=== PATIENT | female | born 1955 | race Caucasian/White ===

== ENCOUNTER 2020-02-18 08:45 | Outpatient (CLI) | payer MEDICARE ==
[2020-02-18 15:06] LABS: BASOPHILS % (AUTO) 0.4 %; EOSINOPHILS # (AUTO) 0.1 10^3/uL (0.0-0.7); EOSINOPHILS % (AUTO) 2.4 %; HGB - HEMOGLOBIN 13.2 g/dL (12.0-16.0); LYMPHOCYTES # (AUTO) 1.9 10^3/uL (1.5-3.5); LYMPHOCYTES % (AUTO) 33.9 %; MEAN CORPUSCULAR HEMOGLOBIN 31.7 pg (27.0-31.0); MEAN CORPUSCULAR HGB CONC 33.2 g/dL (32.0-36.0); MEAN CORPUSCULAR VOLUME 95.2 fL (81.0-99.0); MEAN PLATELET VOLUME 11.7 fL (7.9-10.8); MONOCYTES # (AUTO) 0.4 10^3/uL (0.0-1.0); MONOCYTES % (AUTO) 6.8 %; NEUTROPHILS # (AUTO) 3.1 10^3/uL (1.5-6.6); NEUTROPHILS % (AUTO) 56.1 %; PLT - PLATELET COUNT 210 10^3/uL (130-450); RED BLOOD COUNT 4.17 10^6/uL (4.20-5.40); RED CELL DISTRIBUTION WIDTH 13.2 % (12.0-15.0); WHITE BLOOD COUNT 5.5 x10^3/uL (4.8-10.8)
[2020-02-18 15:27] LABS: ALBUMIN 4.4 g/dL (3.2-5.5); ALBUMIN/GLOBULIN RATIO 1.5 (1.0-2.2); ALKALINE PHOSPHATASE 65 IU/L (42-121); ALT ALANINE AMINOTRANSFERASE 35 IU/L (10-60); AST ASPARTATE AMINOTRANSFERASE 34 IU/L (10-42); BILIRUBIN,TOTAL 0.8 mg/dL (0.2-1.0); BUN - BLOOD UREA NITROGEN 19 mg/dL (6-20); CALCIUM 9.4 mg/dL (8.5-10.3); CARBON DIOXIDE - CO2 29 mmol/L (21-32); CHLORIDE 104 mmol/L (101-111); CHOL/HDL RATIO 3.3 (<4.4); CHOLESTEROL 210 mg/dL; CREATININE 0.8 mg/dL (0.4-1.0); GLUCOSE 145 mg/dL (70-100); HDL CHOLESTEROL 64 mg/dL; LDL CHOLESTEROL,CALCULATED 108 mg/dL; LDL/HDL RATIO 1.7 (<4.4); SODIUM 138 mmol/L (135-145); TOTAL PROTEIN 7.3 g/dL (6.7-8.2); VLDL CHOLESTEROL 38 mg/dL
== END 2020-02-18 08:46 | disposition home or self-care (01) ==
LOC: LAB.S 08:45
PROVIDERS: ATTEND Registered Nurse
DX: E78.5 Hyperlipidemia, unspecified (principal); Z13.228 Encounter for screening for other metabolic disorders; Z13.29 Encounter for screening for other suspected endocrine disorder; Z13.0 Encounter for screening for diseases of the blood and blood-forming organs and certain disorders involving the immune mechanism
CPT/HCPCS: 36415; 80053; 80061; 83721; 84443; 85025

== ENCOUNTER 2020-05-27 07:58 | Outpatient (CLI) | payer MEDICARE ==
[2020-05-27 15:36] LABS: CREATININE,URINE 71.5 mg/dL; MICROALBUM/CREATININE RATIO,UR 5.6 ug/mg (<30.0); MICROALBUMIN,URINE 0.4 mg/dL (0-300.0)
[2020-05-27 20:21] LABS: HEMOGLOBIN A1c% 6.1 % (4.27-6.07)
== END 2020-05-27 07:59 | disposition home or self-care (01) ==
LOC: LAB.S 07:58
PROVIDERS: ATTEND Registered Nurse
DX: E11.9 Type 2 diabetes mellitus without complications (principal)
CPT/HCPCS: 36415; 82043; 82570; 83036

== ENCOUNTER 2020-05-31 20:23 | Day surgery (SDC) | payer MEDICARE ==
--- NOTE | 2020-05-31 20:42 | ED Physician Documentation ---
PD HPI ABD PAIN - Stated complaint Stated Complaint: ABD PX - Chief complaint Chief Complaint: Abd Pain - History obtained from History obtained from: Patient - Additional information Additional information: 64-year-old woman with history of GERD, hiatal hernia, colonic polyps. Last colonoscopy was approximately 3 years ago. She ate beans soup last night for dinner and a few hours later developed central and lower abdominal pain that does not seem to lateralize. She has had loose stools for quite some time, and she had a normal bowel movement for her this morning that did not change her pain. She denies nausea or fevers. No history of abdominal surgeries. She does use marijuana daily but denies nausea Review of Systems Ten Systems: 10 systems reviewed and negative Constitutional: denies: Fever, Chills Cardiac: denies: Chest pain / pressure, Palpitations Respiratory: denies: Dyspnea, Cough GI: reports: Diarrhea (loose, chronic). denies: Nausea, Vomiting PD PAST MEDICAL HISTORY - Present Medications Home Medications: Ambulatory Orders Medication Instructions Recorded Confirmed Atorvastatin [Lipitor] mg PO DAILY 05/31/20 Pantoprazole [Protonix] mg PO DAILY 05/31/20 metFORMIN [Glucophage] mg PO BID 05/31/20 - Allergies Allergies/Adverse Reactions: Allergies Allergy/AdvReac Type Severity Reaction Status Date / Time droperidol Allergy Unknown Verified 05/31/20 20:49 tetracycline Allergy Rash Verified 05/31/20 20:49 PD ED PE NORMAL - Vitals Vital signs reviewed: Yes - General General: Alert and oriented X 3, No acute distress - HEENT HEENT: PERRL, EOMI - Neck Neck: Supple, no meningeal sign, No bony TTP - Cardiac Cardiac: RRR, No murmur - Respiratory Respiratory: No respiratory distress - Abdomen Abdomen: Normal bowel sounds, Soft, Other (Modest lower abdominal tenderness without surgical signs. Does not seem to lateralize.) - Back Back: No CVA TTP, No spinal TTP - Derm Derm: Normal color, Warm and dry - Extremities Extremities: No edema, No calf tenderness / cord - Neuro Neuro: Alert and oriented X 3, Normal speech Results - Vitals Vitals: Vital Signs - 24 hr 05/31/20 20:33 Temperature 36.8 C Heart Rate 85 Respiratory 18 Rate Blood Pressure 161/85 H O2 Saturation 98 Oxygen O2 Source Room air - Labs Labs: Laboratory Tests 05/31/20 05/31/20 05/31/20 08:45 08:45 08:45 WBC 10.7 RBC 4.31 Hgb 13.4 Hct 39.2 MCV 91.0 MCH 31.1 H MCHC 34.2 RDW 12.4 Plt Count 235 MPV 10.4 Neut # (Auto) 6.6 Lymph # (Auto) 3.2 [place] # (Auto) 0.7 Eos # (Auto) 0.2 Baso # (Auto) 0.0 Absolute Nucleated RBC 0.00 Nucleated RBC % 0.0 Sodium 138 Potassium 3.8 Chloride 103 Carbon Dioxide 24 Anion Gap 11.0 BUN 20 Creatinine 0.8 Estimated GFR (MDRD) 72 L Glucose 129 H Calcium 9.7 Total Bilirubin 0.7 AST 22 ALT 26 Alkaline Phosphatase 59 Total Protein 7.5 Albumin 4.7 Globulin 2.8 Albumin/Globulin Ratio 1.7 Lipase 38 Urine Color YELLOW Urine Clarity CLEAR Urine pH 5.5 Ur Specific [place] 1.025 Urine Protein NEGATIVE Urine Glucose (UA) NEGATIVE Urine Ketones NEGATIVE Urine Occult Blood NEGATIVE Urine Nitrite NEGATIVE Urine Bilirubin NEGATIVE Urine Urobilinogen 0.2 (NORMAL) Ur Leukocyte Esterase NEGATIVE Ur Microscopic Review NOT INDICATED Urine Culture Comments NOT INDICATED - Rads (name of study) CT A/P Radiology: EMP read contemporaneously PD MEDICAL DECISION MAKING - ED course ED course: 64-year-old woman presents with acute lower abdominal pain, and CT imaging found to have acute appendicitis. Incidental findings were discussed with the patient. Case discussed by phone with Dr. Flora Stoll at 10:10 PM. Transition orders written so she can board on the floor with IV antibiotics pending surgery in the morning. Departure - Departure Disposition: ED Transfer to [facility] Clinical Impression: Pulmonary nodule Appendicitis Qualifiers: Appendicitis type: acute appendicitis Acute appendicitis type: with localized peritonitis Appendicitis gangrene presence: without gangrene Appendicitis perforation presence: without perforation Appendicitis abscess presence: without abscess Qualified Code(s): K35.30 - Acute appendicitis with localized peritonitis, without perforation or gangrene Condition: Stable
[2020-05-31 20:54] LABS: BASOPHILS % (AUTO) 0.2 %; EOSINOPHILS # (AUTO) 0.2 10^3/uL (0.0-0.7); EOSINOPHILS % (AUTO) 1.5 %; HGB - HEMOGLOBIN 13.4 g/dL (12.0-16.0); LYMPHOCYTES # (AUTO) 3.2 10^3/uL (1.5-3.5); LYMPHOCYTES % (AUTO) 29.8 %; MEAN CORPUSCULAR HEMOGLOBIN 31.1 pg (27.0-31.0); MEAN CORPUSCULAR HGB CONC 34.2 g/dL (32.0-36.0); MEAN PLATELET VOLUME 10.4 fL (7.9-10.8); MONOCYTES # (AUTO) 0.7 10^3/uL (0.0-1.0); MONOCYTES % (AUTO) 6.8 %; NEUTROPHILS # (AUTO) 6.6 10^3/uL (1.5-6.6); NEUTROPHILS % (AUTO) 61.5 %; PLT - PLATELET COUNT 235 10^3/uL (130-450); RED BLOOD COUNT 4.31 10^6/uL (4.20-5.40); RED CELL DISTRIBUTION WIDTH 12.4 % (12.0-15.0); WHITE BLOOD COUNT 10.7 x10^3/uL (4.8-10.8)
[2020-05-31 20:55] LABS: BILIRUBIN,URINE NEGATIVE (NEGATIVE); GLUCOSE, URINE (UA) NEGATIVE (NEGATIVE); KETONES,URINE (UA) NEGATIVE (NEGATIVE); LEUKOCYTE ESTERASE, URINE NEGATIVE (NEGATIVE); NITRITE,URINE NEGATIVE (NEGATIVE); OCCULT BLOOD,URINE NEGATIVE (NEGATIVE); PH,URINE 5.5 PH (5.0-7.5); PROTEIN,URINE NEGATIVE (NEGATIVE); UROBILINOGEN,URINE 0.2 (NORMAL) E.U./dL (NORMAL)
[2020-05-31 20:56] LABS: CLARITY,URINE CLEAR (CLEAR)
[2020-05-31] MEDS ORDERED: IOVERSOL 320 100 ML VIAL IVP ONE ×2 (21:07→21:25)
[2020-05-31 21:10] LABS: ALBUMIN 4.7 g/dL (3.2-5.5); ALBUMIN/GLOBULIN RATIO 1.7 (1.0-2.2); BILIRUBIN,TOTAL 0.7 mg/dL (0.2-1.0); CALCIUM 9.7 mg/dL (8.5-10.3); CREATININE 0.8 mg/dL (0.4-1.0); TOTAL PROTEIN 7.5 g/dL (6.7-8.2)
[2020-05-31] MEDS ORDERED: D5.45NS W/20 MEQ KCL 1,000 ML IV STA (21:39)
[2020-05-31] MEDS ORDERED: PIPERACILLIN/TAZOBACTAM 3.375 GM in SODIUM CHLORIDE 0.9% MINIBAG 100 ML IV STA (21:51)
--- NOTE | 2020-05-31 22:06 | CT Report ---
PROCEDURE: Abdomen/Pelvis W INDICATIONS: IV only, low abd pain CONTRAST: IV CONTRAST: Optiray 320 ml: 100 PO CONTRAST: *NO PO CONTRAST TECHNIQUE: After the administration of IV contrast, 5 mm thick sections acquired from the diaphragms to the symp hysis. 5 mm thick coronal and sagittal reformats were acquired. For radiation dose reduction, the f ollowing was used: automated exposure control, adjustment of mA and/or kV according to patient size. COMPARISON: None. FINDINGS: Image quality: Excellent. ABDOMEN: Lung bases: 5 mm left posterior lateral lower lobe subpleural groundglass nodule. Lung bases are oth erwise clear. Heart size is normal. Small fat-containing hiatal hernia. Solid organs: Mild hepatomegaly and minor hepatic steatosis. The spleen is normal size. Gallbladder has a normal CT appearance. Biliary system is non dilated. Pancreas enhances normally. No adrenal nodules. Kidneys demonstrate normal size and enhancement, without hydronephrosis. Peritoneum and bowel: The appendix is mildly enlarged. The wall is indistinct and there is mild nitin appendiceal inflammation. Pelvic small bowel loops are fluid-filled and mildly prominent in diameter. Normal-appearing colon and rectum. Bowel loops demonstrate normal wall thickness and caliber. No fr ee fluid or air. Nodes and vessels: No retroperitoneal or mesenteric adenopathy by size criteria. Aorta and inferior vena cava are normal in size. Miscellaneous: No ventral hernias. PELVIS: Genitourinary: Bladder wall thickness is normal. The uterus is surgically absent. Miscellaneous: No inguinal hernias or adenopathy. Bones: No suspicious bony lesions. No vertebral body compression fractures. IMPRESSION: 1. Findings of acute appendicitis without perforation or abscess formation. There is mild reactive sm all bowel ileus. 2. Minor hepatomegaly and hepatic steatosis. 3. 5 mm subpleural left lower lobe lung nodule. Chest CT in 6-12 months is recommended for further ev aluation. Reviewed by: Veronica Godinez MD on 05/31/2020 10:05 PM [facility] Approved by: Veronica Godinez MD on 05/31/2020 10:05 PM [facility] Station ID: [id number]
[2020-05-31] MEDS ORDERED: METOCLOPRAMIDE 10 MG/2 ML VIAL IVP PRN (22:09)
[2020-05-31] MEDS ORDERED: HYDROmorphone 0.5 MG/0.5 ML SYRINGE IVP PRN (22:09)
[2020-05-31] MEDS ORDERED: KETOROLAC 15 MG/ML VIAL IVP PRN (22:09)
[2020-05-31] MEDS ORDERED: ACETAMINOPHEN 325 MG TABLET PO PRN (22:09)
[2020-05-31] MEDS ORDERED: ONDANSETRON 4 MG/2 ML VIAL IVP PRN (22:09)
[2020-05-31] MEDS ORDERED: LORazepam 1 MG TABLET PO PRN (22:15)
[2020-05-31 22:50] LABS: C. PNEUMONIAE- RESP PCR PANEL NOT DETECTED
[2020-05-31] MEDS ORDERED: PIPERACILLIN/TAZOBACTAM 3.375 GM in SODIUM CHLORIDE 0.9% MINIBAG 100 ML IV SCH (23:00)
[2020-06-01] MEDS: PIPERACILLIN/TAZOBACTAM 3.375 GM in SODIUM CHLORIDE 0.9% MINIBAG 100 ML IV SCH ×3 (02:44→20:49)
[2020-06-01] MEDS: DEXTROSE 5%-LACTATED RINGERS 1,000 ML IV SCH ×3 (08:11→14:21)
--- NOTE | 2020-06-01 11:02 | ANESTHESIA ---
Pre-Anesthesia VS, & Labs - Diagnosis acute appendicitis - Procedure lap appy Vital Signs: Temp Pulse Resp BP Pulse Ox 36.8 C 75 16 120/61 96 06/01/20 08:15 06/01/20 08:15 06/01/20 08:15 06/01/20 08:15 06/01/20 08:15 Height: 5 ft 7 in Weight (kg): 88.451 kg Body Mass Index: 30.5 BMI Classification: Obese - NPO >8 hours Last Food Intake: 1900 - Is Patient ?: No - Lab Results Current Lab Results: Laboratory Tests 05/31/20 08:45: Sodium 138, Potassium 3.8, Chloride 103, Carbon Dioxide 24, Anion Gap 11.0, BUN 20, Creatinine 0.8, Estimated GFR (MDRD) 72 L, Glucose 129 H , Calcium 9.7, Total Bilirubin 0.7, AST 22, ALT 26, Alkaline Phosphatase 59, Total Protein 7.5, Albumin 4.7, Globulin 2.8, Albumin/Globulin Ratio 1.7, Lipase 38 05/31/20 08:45: WBC 10.7, RBC 4.31, Hgb 13.4, Hct 39.2, MCV 91.0, MCH 31.1 H, MCHC 34.2, RDW 12.4, Plt Count 235, MPV 10.4, Neut # (Auto) 6.6, Lymph # (Auto) 3.2, [place] # (Auto) 0.7, Eos # (Auto) 0.2, Baso # (Auto) 0.0, Absolute Nucleated RBC 0.00, Nucleated RBC % 0.0 Fish Bones: 05/31/20 08:45 05/31/20 08:45 Home Medications and Allergies Home Medications: Ambulatory Orders Atorvastatin [Lipitor] mg PO DAILY 05/31/20 Pantoprazole [Protonix] mg PO DAILY 05/31/20 metFORMIN [Glucophage] mg PO BID 05/31/20 Active Medications Acetaminophen (Acetaminophen 325 Mg Tablet) 650 mg PO Q6H PRN PRN Reason: Pain or Fever > 38C (100.4F) Hydromorphone HCl (Hydromorphone 0.5 Mg/0.5 Ml Syringe) 0.5 mg IVP Q1H PRN PRN Reason: PAIN Dextrose/Lactated Ringer's (D5lr) 1,000 mls @ 125 mls/hr IV .Q8H CASEY Last Admin: 06/01/20 09:00 Dose: 125 mls/hr Documented by: Piperacillin Sod/Tazobactam (Sod 3.375 gm/ Sodium Chloride) 100 mls @ 200 mls/hr IV Q8H [facility] Last Infusion: 06/01/20 03:14 Dose: Infused Documented by: Ketorolac Tromethamine (Ketorolac 15 Mg/Ml Vial) 15 mg IVP Q6H PRN PRN Reason: PAIN Stop: 06/05/20 22:08 Lorazepam (Lorazepam 1 Mg Tablet) 1 mg PO QPM PRN PRN Reason: sleep Last Admin: 05/31/20 22:59 Dose: 1 mg Documented by: Metoclopramide HCl (Metoclopramide 10 Mg/2 Ml Vial) 5 mg IVP Q6H PRN PRN Reason: Nausea / Vomiting Ondansetron HCl (Ondansetron 4 Mg/2 Ml Vial) 4 mg IVP Q6H PRN PRN Reason: Nausea / Vomiting Atorvastatin [Lipitor] mg PO DAILY 05/31/20 Pantoprazole [Protonix] mg PO DAILY 05/31/20 metFORMIN [Glucophage] mg PO BID 05/31/20 sertraline Allergies/Adverse Reactions: Allergies Allergy/AdvReac Type Severity Reaction Status Date / Time droperidol Allergy Unknown Verified 05/31/20 20:49 tetracycline Allergy Rash Verified 05/31/20 20:49 Anes History & Medical History - Anesthetic History Anesthesia Complications: reports: No previous complications - Medical History Cardiovascular: reports: High cholesterol, Other (history of MVP, no issues with ECHO) Pulmonary: reports: None Gastrointestinal: reports: GERD Urinary: reports: None Neuro: reports: None Musculoskeletal: reports: None Endocrine/Autoimmune: reports: Type 2 diabetes Blood Disorders: reports: None Skin: reports: None Smoking Status: Never smoker Psychosocial: reports: Depression History of Cancer?: No - Surgical History Gynecologic: Hysterectomy Orthopedic: Other (Left Ankle, Right Thumb) Exam General: Alert Dental: Poor dentition Mouth Openin Fingerbreadth Neck Mobility: Reduced Mallampati classification: II Thyromental Distance: 4-6 cm Mental/Cognitive Status: Alert/Oriented X3, Normal for patient Plan Anesthesia Type: General Consent for Procedure(s) Verified and Reviewed: Yes Code Status: Attempt Resuscitation ASA classification: 2-Mild systemic disease Is this case an emergency?: Yes
[2020-06-01] MEDS ORDERED: BUPIVACAINE 0.5%-EPI 1:200000 PF 30 ML VIAL ONE (11:45)
[2020-06-01] MEDS ORDERED: BUPIVACAINE 0.5%-EPI 1:200000 PF 30 ML VIAL SUBQ ONE (11:52)
--- NOTE | 2020-06-01 12:06 | HISTORY & PHYSICAL EXAMINATION ---
Chief Complaint - Chief Complaint Chief Complaint: abdominal pain x 1 day Abdominal Pain HPI - Admitted From Admitted from: ED - History Obtained From History obtained from: Patient Exam limitations: No limitations - History of Present Illness Severity at the worst: Moderate Pain Quality: Dull Context-Pain started w/: Rest Timing: Gradual onset Duration: Days: (1) Improved with: Other (antibiotics) Worsened by: Movement HPI Comment/Other: 1 day of periumbilical to right lower quadrant pain. Seen in the ED. ct positive appendicitis PMH/PSH - Past Medical History Cardiovascular: positive: High cholesterol, Other (history of MVP, no issues with ECHO) Respiratory: positive: None Neuro: positive: None Endocrine/Autoimmune: positive: Type 2 diabetes GI: positive: GERD DRIVER GUARD: positive: None : positive: None HEENT: positive: None Psych: positive: None Musculoskeletal: positive: None Derm: positive: None MRSA Hx?: No - Past Surgical History Ortho: positive: Other (Left Ankle, Right Thumb) /DRIVER GUARD: positive: Hysterectomy Social & Family Hx - Social History Does the pt smoke?: No Smoking Status: Never smoker Does the pt drink ETOH?: Yes Does the pt have substance abuse?: No Meds/Allgy - Home Medications Home Medications: Ambulatory Orders Medication Instructions Recorded Confirmed Atorvastatin [Lipitor] mg PO DAILY 05/31/20 Pantoprazole [Protonix] mg PO DAILY 05/31/20 metFORMIN [Glucophage] mg PO BID 05/31/20 - Allergies Allergies/Adverse Reactions: Allergies Allergy/AdvReac Type Severity Reaction Status Date / Time droperidol Allergy Unknown Verified 05/31/20 20:49 tetracycline Allergy Rash Verified 05/31/20 20:49 Review of Systems - Constitutional Constitutional: reports: Fatigue (10 pt ros as above otherwise unremarkable) Exam - Vital Signs Reviewed Vital Signs: Yes Vital Signs: Vital Signs x48h Temp Pulse Resp BP Pulse Ox 06/01/20 08:15 36.8 C 75 16 120/61 96 06/01/20 05:00 37.2 C 70 16 98/50 L 98 - Physical Exam General Appearance: positive: No acute distress, Alert Eyes Bilateral: positive: Normal inspection, PERRL, EOMI ENT: positive: No signs of dehydration Neck: positive: No JVD Respiratory: positive: No respiratory distress Cardiovascular: positive: Regular rate & rhythm Abdomen: positive: No distention, Other (right lower quadrant tenderness present) Neurologic/Psychiatric: positive: Oriented x3 Results - Lab Results Fish Bones: 05/31/20 08:45 05/31/20 08:45 Other Lab Results: Lab Results x24hrs 05/31/20 05/31/20 05/31/20 Range/Units 21:41 08:45 08:45 WBC (4.8-10.8) x10^3/uL RBC (4.20-5.40) 10^6/uL Hgb (12.0-16.0) g/dL Hct (37.0-47.0) % MCV (81.0-99.0) fL MCH (27.0-31.0) pg MCHC (32.0-36.0) g/dL RDW (12.0-15.0) % Plt Count (130-450) 10^3/uL MPV (7.9-10.8) fL Neut # (Auto) (1.5-6.6) 10^3/uL Lymph # (Auto) (1.5-3.5) 10^3/uL [place] # (Auto) (0.0-1.0) 10^3/uL Eos # (Auto) (0.0-0.7) 10^3/uL Baso # (Auto) (0.0-0.1) 10^3/uL Absolute Nucleated RBC x10^3/uL Nucleated RBC % /100WBC Sodium 138 (135-145) mmol/L Potassium 3.8 (3.5-5.0) mmol/L Chloride 103 (101-111) mmol/L Carbon Dioxide 24 (21-32) mmol/L Anion Gap 11.0 (6-13) BUN 20 (6-20) mg/dL Creatinine 0.8 (0.4-1.0) mg/dL Estimated GFR (MDRD) 72 L (>89) Glucose 129 H (70-100) mg/dL Calcium 9.7 (8.5-10.3) mg/dL Total Bilirubin 0.7 (0.2-1.0) mg/dL AST 22 (10-42) IU/L ALT 26 (10-60) IU/L Alkaline Phosphatase 59 (42-121) IU/L Total Protein 7.5 (6.7-8.2) g/dL Albumin 4.7 (3.2-5.5) g/dL Globulin 2.8 (2.1-4.2) g/dL Albumin/Globulin Ratio 1.7 (1.0-2.2) Lipase 38 (22-51) U/L Urine Color YELLOW Urine Clarity CLEAR (CLEAR) Urine pH 5.5 (5.0-7.5) PH Ur Specific [place] 1.025 (1.002-1.030) Urine Protein NEGATIVE (NEGATIVE) mg/dL Urine Glucose (UA) NEGATIVE (NEGATIVE) mg/dL Urine Ketones NEGATIVE (NEGATIVE) mg/dL Urine Occult Blood NEGATIVE (NEGATIVE) Urine Nitrite NEGATIVE (NEGATIVE) Urine Bilirubin NEGATIVE (NEGATIVE) Urine Urobilinogen 0.2 (NORMAL) (NORMAL) E.U./dL Ur Leukocyte Esterase NEGATIVE (NEGATIVE) Ur Microscopic Review NOT INDICATED Urine Culture Comments NOT INDICATED Nasal Adenovirus (PCR) NOT DETECTED Nasal B. parapertussis DNA (PCR) NOT DETECTED Nasal Coronavir 229E PCR NOT DETECTED Nasal Coronavir HKU1 PCR NOT DETECTED Nasal Coronavir NL63 PCR NOT DETECTED Nasal Coronavir OC43 PCR NOT DETECTED Nasal Enterovir/Rhinovir PCR NOT DETECTED Nasal Influenza B PCR NOT DETECTED Nasal Influenza A PCR NOT DETECTED Nasal Parainfluen 1 PCR NOT DETECTED Nasal Parainfluen 2 PCR NOT DETECTED Nasal Parainfluen 3 PCR NOT DETECTED Nasal Parainfluen 4 PCR NOT DETECTED Nasal RSV (PCR) NOT DETECTED Nasal B.pertussis DNA PCR NOT DETECTED Nasal C.pneumoniae (PCR) NOT DETECTED [place]if Human Metapneumo PCR NOT DETECTED Nasal M.pneumoniae (PCR) NOT DETECTED Nasal SARS-CoV-2 (PCR) NOT DETECTED 05/31/20 Range/Units 08:45 WBC 10.7 (4.8-10.8) x10^3/uL RBC 4.31 (4.20-5.40) 10^6/uL Hgb 13.4 (12.0-16.0) g/dL Hct 39.2 (37.0-47.0) % MCV 91.0 (81.0-99.0) fL MCH 31.1 H (27.0-31.0) pg MCHC 34.2 (32.0-36.0) g/dL RDW 12.4 (12.0-15.0) % Plt Count 235 (130-450) 10^3/uL MPV 10.4 (7.9-10.8) fL Neut # (Auto) 6.6 (1.5-6.6) 10^3/uL Lymph # (Auto) 3.2 (1.5-3.5) 10^3/uL [place] # (Auto) 0.7 (0.0-1.0) 10^3/uL Eos # (Auto) 0.2 (0.0-0.7) 10^3/uL Baso # (Auto) 0.0 (0.0-0.1) 10^3/uL Absolute Nucleated RBC 0.00 x10^3/uL Nucleated RBC % 0.0 /100WBC Sodium (135-145) mmol/L Potassium (3.5-5.0) mmol/L Chloride (101-111) mmol/L Carbon Dioxide (21-32) mmol/L Anion Gap (6-13) BUN (6-20) mg/dL Creatinine (0.4-1.0) mg/dL Estimated GFR (MDRD) (>89) Glucose (70-100) mg/dL Calcium (8.5-10.3) mg/dL Total Bilirubin (0.2-1.0) mg/dL AST (10-42) IU/L ALT (10-60) IU/L Alkaline Phosphatase (42-121) IU/L Total Protein (6.7-8.2) g/dL Albumin (3.2-5.5) g/dL Globulin (2.1-4.2) g/dL Albumin/Globulin Ratio (1.0-2.2) Lipase (22-51) U/L Urine Color Urine Clarity (CLEAR) Urine pH (5.0-7.5) PH Ur Specific [place] (1.002-1.030) Urine Protein (NEGATIVE) mg/dL Urine Glucose (UA) (NEGATIVE) mg/dL Urine Ketones (NEGATIVE) mg/dL Urine Occult Blood (NEGATIVE) Urine Nitrite (NEGATIVE) Urine Bilirubin (NEGATIVE) Urine Urobilinogen (NORMAL) E.U./dL Ur Leukocyte Esterase (NEGATIVE) Ur Microscopic Review Urine Culture Comments Nasal Adenovirus (PCR) Nasal B. parapertussis DNA (PCR) Nasal Coronavir 229E PCR Nasal Coronavir HKU1 PCR Nasal Coronavir NL63 PCR Nasal Coronavir OC43 PCR Nasal Enterovir/Rhinovir PCR Nasal Influenza B PCR Nasal Influenza A PCR Nasal Parainfluen 1 PCR Nasal Parainfluen 2 PCR Nasal Parainfluen 3 PCR Nasal Parainfluen 4 PCR Nasal RSV (PCR) Nasal B.pertussis DNA PCR Nasal C.pneumoniae (PCR) Leif Human Metapneumo PCR Nasal M.pneumoniae (PCR) Nasal SARS-CoV-2 (PCR) - Diagnostic Imaging Results Diagnostic Imaging Results: positive: Read independently (positive appendicitis) Impression/Plan - Problem List Problem List: appendicitis. parq held and consent obtained. plan lap appendectomy
[2020-06-01] MEDS ORDERED: LACTATED RINGERS 1,000 ML IV ONE (13:25)
--- NOTE | 2020-06-01 13:28 | OPERATIVE REPORT ---
Operative Report - General Procedure Date: 06/01/20 Planned Procedure: lap appendectomy Pre-Op Diagnosis: appendicitis Procedure Performed: lap appendectomy Post Op Diagnosis: appendicitis, suppurative - Procedure Note Primary Surgeon: sarika davis Anesthesia Technique: General ET tube, Local Pathology: appendix Estimated Blood Loss (mL): 0 Drain/Tube Type: Other (none) Complications: none
[2020-06-01] MEDS ORDERED: SODIUM CHLORIDE FLUSH 0.9% 10 ML SYRINGE IVP PRN (13:29)
[2020-06-01] MEDS ORDERED: ZOLPIDEM 5 MG TABLET PO PRN (13:29)
[2020-06-01] MEDS ORDERED: ONDANSETRON ODT 4 MG TABLET TL PRN (13:29)
[2020-06-01] MEDS ORDERED: fentaNYL 100 MCG/2 ML VIAL IVP PRN (13:35)
[2020-06-01] MEDS ORDERED: HYDROmorphone 0.5 MG/0.5 ML SYRINGE IVP PRN (13:35)
[2020-06-01] MEDS ORDERED: ONDANSETRON 4 MG/2 ML VIAL IVP PRN (13:35)
[2020-06-01] MEDS ORDERED: MORPHINE 2 MG/ML CARPUJECT IVP PRN (13:35)
[2020-06-01] MEDS ORDERED: NALOXONE 0.4 MG/ML VIAL IVP PRN (13:35)
[2020-06-01] MEDS ORDERED: ATROPINE ABBOJECT 1 MG/10 ML SYRINGE IVP PRN (13:35)
[2020-06-01] MEDS ORDERED: LACTATED RINGERS 1,000 ML IV SCH (14:00)
[2020-06-01] MEDS ORDERED: PHENOL THROAT SPRAY 177 ML MM PRN (14:13)
[2020-06-01] MEDS ORDERED: BENZOCAINE/MENTHOL LOZENGE MM PRN (14:13)
[2020-06-01] MEDS: LACTATED RINGERS 1,000 ML IV SCH ×3 (14:18→20:59)
--- NOTE | 2020-06-01 15:48 | PHARMACY PROGRESS NOTE ---
- Best Possible Medication History Admit Date and Time: 06/01/20 1329 Processed by: Pharmacy Medication History completed: Yes Patient Interview: Completed Secondary Source(s): Written medication list, Physician records, Pharmacy records, Insurance records (PATIENT INTERVIEWED BY [employer]. PATIENT ABLE TO CONFIRM HOME MEDICATIONS) As the person ultimately responsible for medication therapy, providers are able to order a medication from an existing home medication list in [facility] via the "Reconcile Routine" prior to Confirmation of that medication by system support technician. Such practice is discouraged except when the physician, in their clinical judgment, deems that a medical need exists for a medication without regard to previous use.
[2020-06-01] MEDS: INSULIN REGULAR HUMAN 300 UNIT/3 ML VIAL SUBQ SCH (17:36)
--- NOTE | 2020-06-01 18:23 | OPERATIVE REPORT ---
DATE OF SERVICE: 05/31/2020 Physician: Mal Nelson MD PREOPERATIVE DIAGNOSIS: Appendicitis. POSTOPERATIVE DIAGNOSIS: Appendicitis suppurative. PROCEDURE PERFORMED: Laparoscopic appendectomy. SURGEON: Mal Nelson MD STORAGE CENTER MANAGER: None. ANESTHESIA 1. General endotracheal anesthesia. 2. Local anesthesia with Marcaine. COMPLICATIONS: None. ESTIMATED BLOOD LOSS: None SPECIMEN: Appendix. FINDINGS: Suppurative appendicitis. No purulence within the abdomen. DRAINS: None. INDICATIONS FOR PROCEDURE: The patient is a relatively healthy 64-year-old with 1 day of abdominal discomfort. She was seen and evaluated through the emergency department. Workup including CT scan revealed appendicitis. Laparoscopic appendectomy versus medical management was discussed. Risks discussed, alternatives discussed, all questions answered, and consent obtained for laparoscopic appendectomy. DETAILS OF PROCEDURE: The patient was properly identified and brought to the operating room and placed in a supine position. Sequential compression devices were placed. She received antibiotics recently. General endotracheal anesthesia was induced. She was prepped and draped in a sterile fashion. Local anesthetic was given to incision areas. An infraumbilical incision was made. Dissection proceeded down to the fascia. The fascia was incised, lifted upwards, and abdomen entered with the Veress needle. CO2 was insufflated to a pressure of 15. A 12 mm trocar was placed, followed by a 30-degree scope. There was no evidence of injury from Veress needle or trocar placement. Under direct vision, a 5 mm trocar was placed suprapubically, and a 5 mm trocar was placed in the right upper quadrant. The appendix was identified and retracted anterior. Lateral retroperitoneal attachments were taken down from the mesoappendix, further mobilizing the appendix more anterior. A plane was then created between the appendix and the mesoappendix. The mesoappendix was then divided with an Endo-LISSY vascular stapler. The appendix was further mobilized down to the cecum. The appendix was then divided with an intestinal load including a small portion of the cecum. Hemostasis was ensured. There was secure closure at the cecum. Abdomen was irrigated. The appendix had been placed in an Endocatch bag and brought out. A 5 mm scope was used to facilitate the procedure. Trocars were removed under direct vision and CO2 evacuated. Fascia at the infraumbilical site was closed with a running 0 Vicryl suture. Subcutaneous tissue was irrigated and then skin loosely reapproximated with running or buried interrupted 4-0 Monocryl. Dressings were applied. She tolerated the procedure well. TD: 06/01/2020 13:43 MEHUL
[2020-06-01] MEDS: SODIUM CHLORIDE FLUSH 0.9% 10 ML SYRINGE IVP SCH (18:31)
[2020-06-01] MEDS: AMPICILLIN/SULBACTAM 3 GM in SODIUM CHLORIDE 0.9% MINIBAG 100 ML IV SCH (18:32)
[2020-06-01] MEDS: HYDROcod/ACETAM 5/325 MG TABLET PO PRN (20:04)
[2020-06-01] MEDS: HEPARIN 5,000 UNIT/ML VIAL SUBQ SCH (20:51)
[2020-06-01] MEDS ORDERED: ATORVASTATIN 10 MG TABLET PO SCH (21:00)
[2020-06-01] MEDS: SIMETHICONE CHEW 80 MG TABLET PO SCH (21:00)
[2020-06-02] MEDS: AMPICILLIN/SULBACTAM 3 GM in SODIUM CHLORIDE 0.9% MINIBAG 100 ML IV SCH ×2 (01:16→13:29)
[2020-06-02] MEDS: INSULIN REGULAR HUMAN 300 UNIT/3 ML VIAL SUBQ SCH ×2 (01:21→06:42)
[2020-06-02] MEDS: HYDROcod/ACETAM 5/325 MG TABLET PO PRN ×2 (01:30→06:10)
[2020-06-02] MEDS: SODIUM CHLORIDE FLUSH 0.9% 10 ML SYRINGE IVP SCH ×2 (03:20→10:00)
[2020-06-02] MEDS: PIPERACILLIN/TAZOBACTAM 3.375 GM in SODIUM CHLORIDE 0.9% MINIBAG 100 ML IV SCH (04:23)
[2020-06-02] MEDS: SIMETHICONE CHEW 80 MG TABLET PO SCH (06:07)
[2020-06-02] MEDS ORDERED: PANTOPRAZOLE 40 MG TABLET PO SCH (07:00)
[2020-06-02 09:04] VITALS: BP 104/33
--- NOTE | 2020-06-02 09:28 | DISCHARGE SUMMARY ---
"Discharge Summary Admit Date: 05/31/20 Discharge Date: 06/02/20 Discharging Provider: sarika davis Code Status: Attempt Resuscitation Condition at Discharge: Good Discharge Disposition: 01 Home, Self Care - DIAGNOSES Admission Diagnoses: appendicitis Discharge Diagnoses with Status of Each Condition: home in good condition after treatment with antibiotics and appendectomy - HPI History of Present Illness: abdominal pain x 1 day. seen late in the day 05/31. surgery 06/01/2020, lap appendectomy - CONSULTS | PROCEDURES Procedures: appendectomy - HOSPITAL COURSE Hospital Course: did well. home day after surgery afebrile and tolerating diet - ALLERGIES Allergies/Adverse Reactions: Allergies Allergy/AdvReac Type Severity Reaction Status Date / Time droperidol Allergy Unknown Verified 05/31/20 20:49 tetracycline Allergy Rash Verified 05/31/20 20:49 - MEDICATIONS Home Medications: Ambulatory Orders Medication Instructions Recorded Confirmed Atorvastatin [Lipitor] 10 mg PO DAILY 05/31/20 06/01/20 Pantoprazole [Protonix] 40 mg PO BID 05/31/20 06/01/20 metFORMIN [Glucophage] 500 mg PO BID 05/31/20 06/01/20 Sertraline [Zoloft] 25 mg PO DAILY 06/01/20 06/01/20 Home Medications Other | Comments: vicodin - PHYSICAL EXAM AT DISCHARGE General Appearance: positive: No acute distress, Alert Eyes Bilateral: positive: Normal inspection, PERRL, EOMI ENT: positive: No signs of dehydration Neck: positive: No JVD Respiratory: positive: No respiratory distress Abdomen: positive: Non-tender, No distention Neurologic/Psychiatric: positive: Oriented x3 - LABS Result Diagrams: 05/31/20 08:45 05/31/20 08:45 - QUALITY (Female Hip Fx Only) Was patient sent home on osteoporosis medication?: No - FOLLOW UP Follow Up: surgery in about a week [phone]"
--- NOTE | 2020-06-02 09:31 | Discharge Plan ---
Discharge Plan Problem Reviewed?: Yes Disposition: Home, Self Care Diet: Regular Activity Restrictions: No Restrictions Shower Restrictions: No Driving Restrictions: No Additional Instructions or Follow Up instructions: follow up surgery in about a week call to make an appointment and call with any concerns [phone] you may shower and get the dressings wet leave the dressings on for about 5 days leave the underlying tapes on until loose No Smoking: If you smoke, Please STOP! Call for help. Follow-up with: Bre Keen ARNP [Primary Care Provider] -
[2020-06-02] MEDS: HEPARIN 5,000 UNIT/ML VIAL SUBQ SCH (10:00)
[2020-06-02] MEDS: LACTATED RINGERS 1,000 ML IV SCH (10:00)
[2020-06-02] MEDS ORDERED: AMPICILLIN/SULBACTAM 3 GM in SODIUM CHLORIDE 0.9% MINIBAG 100 ML IV SCH (12:00)
== END 2020-06-02 11:03 | disposition home or self-care (01) ==
LOC: ED 20:23 → MS2 22:09 → SDS 22:09 → MS2 22:10 → SDS 22:10 → UNDOADMOB 06-01 13:29 → MS2 06-01 13:29 → SDS 06-01 13:29 → MS2 06-01 14:03 → UNDODISOB 06-02 10:00 → SDS 06-02 11:03 → UNDODISOB 06-02 11:03
PROVIDERS: ATTEND Surgery
PROC: 0DTJ4ZZ Resection of Appendix, Percutaneous Endoscopic Approach (ICD-10-PCS; principal; 2020-06-01 12:00)
DX: K35.80 Unspecified acute appendicitis (principal); E11.9 Type 2 diabetes mellitus without complications; K21.9 Gastro-esophageal reflux disease without esophagitis; K44.9 Diaphragmatic hernia without obstruction or gangrene; E78.00 Pure hypercholesterolemia, unspecified; R91.1 Solitary pulmonary nodule; Z79.84 Long term (current) use of oral hypoglycemic drugs; Z79.899 Other long term (current) drug therapy
CPT/HCPCS: 0202U; 36415; 74177; 80053; 81001; 81003; 83690; 85025; 87086

== ENCOUNTER 2020-07-19 12:49 | Outpatient (CLI) | payer MEDICARE ==
--- NOTE | 2020-07-20 09:45 | Mammography Report ---
BILATERAL DIGITAL SCREENING MAMMOGRAM 3D/2D: 07/19/2020 CLINICAL: Routine screening. Comparison is made to exams dated: 01/06/2019 mammogram and 11/26/2017 mammogram - [facility]. The tissue of both breasts is extremely dense, which lowers the sensitivity of mammograph y. There are benign calcifications in both breasts. No significant masses, calcifications, or other findings are seen in either breast. There has been no significant interval change. IMPRESSION: BENIGN There is no mammographic evidence of malignancy. A 1 year screening mammogram is recommended. This exam was interpreted at Station ID: [id number]. NOTE: For mammograms, a report in lay terms will be sent to the patient. Approximately 15% of breast malignancies will not be visualized mammographically. In the management of a palpable breast mass, a negative mammogram must not discourage biopsy of a clinically suspicious lesion. Electronically Signed By: Jesus Conn M.D. [email or web address]:07/19/2020 16:29:20 ACR BI-RADS Category 2: Benign Finding(s) 3342F PARENCHYMAL PATTERN: (VD) - The breast(s) demonstrate(s) extremely dense parenchyma, limiting the sen sitivity of mammography. BI-RADS CATEGORY: (2) - 2 RECOMMENDATION: (ANNUAL) - Recommend routine annual screening mammography. [id number] 1 year screening LATERALITY: (B)
== END 2020-07-19 12:50 | disposition home or self-care (01) ==
LOC: DI 12:49
PROVIDERS: ATTEND Registered Nurse
DX: Z12.31 Encounter for screening mammogram for malignant neoplasm of breast (principal)

== ENCOUNTER 2020-07-23 15:24 | Outpatient (CLI) | payer MEDICARE ==
--- NOTE | 2020-07-23 16:41 | DEXA Report ---
PROCEDURE: Dexa Spine and/or Hip INDICATIONS: SCREENING FOR OSTEOPORSIS TECHNIQUE: Dual energy x-ray absorptiometry (DXA) was performed on a [employer]. Regions measur ed are the AP Spine, femoral neck, and if needed forearm. COMPARISON: None. FINDINGS: Lumbar Spine: Bone Mineral Density 1.173 g/cm/cm,T score -0.1, normal Left Hip: Bone Mineral Density 1.064 g/cm/cm,T score 0.4, normal Left Femoral Neck: Bone Mineral Density 0.060 g/cm/cm, T score 0.2, normal (T score greater or equal to -1.0: NORMAL) (T score from -1.1 to -2.4: OSTEOPENIA) (T score less than or equal to -2.5 to: OSTEOPOROSIS) Impression: Normal bone mineral density. Patients with diagnosis of osteoporosis or osteopenia should have regular bone mineral density assess ment. For those eligible for Medicare, routine testing is allowed once every 2 years. Testing frequ ency can be increased for patients who have rapidly progressing disease or for those who are receivin g medical therapy to restore bone mass. Reviewed by: Karey Love MD on 07/23/2020 4:40 PM PST Approved by: Karey Love MD on 07/23/2020 4:40 PM PST Station ID: [id number]
== END 2020-07-23 15:25 | disposition home or self-care (01) ==
LOC: DI 15:24
PROVIDERS: ATTEND Registered Nurse
DX: Z13.820 Encounter for screening for osteoporosis (principal)

== ENCOUNTER 2020-09-01 12:36 | Outpatient (CLI) | payer MEDICARE ==
[2020-09-01 15:32] LABS: CALCIUM 9.9 mg/dL (8.5-10.3); CREATININE 0.7 mg/dL (0.4-1.0); POTASSIUM 4.2 mmol/L (3.5-5.0)
[2020-09-01 16:23] LABS: CREATININE,URINE 113.2 mg/dL; MICROALBUM/CREATININE RATIO,UR 7.1 ug/mg (<30.0); MICROALBUMIN,URINE 0.8 mg/dL (0-300.0)
[2020-09-01 18:31] LABS: ESTIMATED AVERAGE GLUCOSE 120 mg/dL (70-100); HEMOGLOBIN A1c% 5.8 % (4.27-6.07)
== END 2020-09-01 12:37 | disposition home or self-care (01) ==
LOC: LAB.S 12:36
PROVIDERS: ATTEND Registered Nurse
DX: E11.9 Type 2 diabetes mellitus without complications (principal)
CPT/HCPCS: 36415; 80048; 82043; 82570; 83036

== ENCOUNTER 2021-01-10 13:08 | Outpatient (CLI) | payer MEDICARE ==
--- NOTE | 2021-01-10 16:49 | CT Report ---
PROCEDURE: CHEST WO INDICATIONS: LUNG NODULE TECHNIQUE: Noncontrast images were acquired from the pulmonary apices to the posterior costophrenic angles. Mul tiplanar MIP reformats were then acquired. For radiation dose reduction, the following was used: au tomated exposure control, adjustment of mA and/or kV according to patient size. COMPARISON: CT abdomen and pelvis dated 05/31/2020 FINDINGS: Image quality: Excellent. Lungs and pleura: There is a 4 mm peripheral left upper lobe pulmonary nodule seen on axial image 17 0, series 4. Previously described 5 mm groundglass nodule in the left lung base is not visualized. Th ere is minimal residual subsegmental atelectasis versus scarring in the region. Incidental tiny punct ate calcified granulomas are noted peripherally in the right lung base. No acute air space opacities. No septal thickening or nodularity. No pleural effusions or pneumothorax. Central and peripheral ai rways are patent and normal in caliber. Mediastinum: Heart size is normal. Mild atherosclerotic calcifications of the coronary arteries. No pericardial effusion. No mediastinal adenopathy by size criteria. Thoracic aorta and central pulmo nary arteries are normal in size. Esophagus is normal in caliber. No hiatal hernia. Bones and chest wall: No suspicious bony lesions. No acute vertebral body compression fractures. N o axillary or supraclavicular adenopathy by size criteria. The thyroid is normal in size and there a re no incidental findings. Abdomen: Visualized upper abdominal solid organs and bowel loops appear normal in the absence of con trast. IMPRESSION: 1. Previously described 5 mm groundglass nodule in the left lung base has resolved and likely inflamm atory/infectious in etiology. 2. A solid 4 mm peripheral left upper lobe pulmonary nodule is noted. Recommend follow-up chest CT in one year to document stability. 3. Chest without acute cardiopulmonary abnormalities. 4. Atherosclerotic vascular disease. CLINICAL RECOMMENDATION STATEMENTS: In patients <35 years with an ITN detected on CT, MRI, or extrathyroidal ultrasound, the Committee re commends further evaluation with dedicated thyroid ultrasound if the nodule is ?1 cm and has no suspi cious imaging features, and if the patient has normal life expectancy. In patients ?35 years with an ITN detected on CT, MRI, or extrathyroidal ultrasound, the Committee re commends further evaluation with dedicated thyroid ultrasound if the nodule is ?1.5 cm and has no josr picious imaging features, and if the patient has normal life expectancy. (ACR, 2014) Reviewed by: Raymond Georges MD on 01/10/2021 4:48 PM PDT Approved by: Raymond Georges MD on 01/10/2021 4:48 PM PDT Station ID: [id number]
== END 2021-01-10 13:09 | disposition home or self-care (01) ==
LOC: DI 13:08
PROVIDERS: ATTEND Surgery
DX: R91.1 Solitary pulmonary nodule (principal)

== ENCOUNTER 2023-01-30 08:00 | Outpatient (CLI) | payer MEDICARE ==
[2023-02-01 12:10] LABS: GIARDIA LAMBLIA AG EIA Negative (Negative)
[2023-02-05 11:10] LABS: OVA + PARASITE EXAM Final report (.)
== END 2023-01-30 23:59 | disposition home or self-care (01) ==
LOC: LAB.S 08:00
PROVIDERS: ATTEND Nurse Practitioner
DX: R19.7 Diarrhea, unspecified (principal)
CPT/HCPCS: 87177; 87329; 87493

== ENCOUNTER 2023-12-21 07:00 | Outpatient (CLI) | payer MEDICARE ==
--- NOTE | 2023-12-21 21:30 | XRAY Report ---
PROCEDURE: Foot 3+V RT INDICATIONS: RIGHT FOOT SPRAIN/2ND DIGIT PAIN TECHNIQUE: 3 views of the foot were acquired. COMPARISON: None. FINDINGS: Bones: No fractures or dislocations. No suspicious bony lesions. Soft tissues: No tibiotalar joint effusion. Achilles tendon appears normal. IMPRESSION: No acute bony abnormality. Reviewed by: Giovani Aguiar MD on 12/21/2023 9:29 PM PDT Approved by: Giovani Aguiar MD on 12/21/2023 9:29 PM PDT Station ID: [id number]
== END 2023-12-21 23:59 | disposition home or self-care (01) ==
LOC: DI.S 07:00
PROVIDERS: ATTEND Physician Assistant Medical
DX: S93.691A Other sprain of right foot, initial encounter (principal); S93.504A Unspecified sprain of right lesser toe(s), initial encounter